=== PATIENT | female | born 1960 | race Caucasian/White ===

== ENCOUNTER 2023-01-15 10:46 | Day surgery (SDC) | payer MEDICARE ==
[2023-01-15] MEDS ORDERED: BUPIVACAINE 0.5% VIAL IJ ONE (10:47)
[2023-01-15] MEDS ORDERED: XYLOCAINE-MPF 1% 5ML SDV IJ ONE (10:47)
[2023-01-15] MEDS ORDERED: Depo-Medrol 40 MG/ML IM ONE (10:47)
--- NOTE | 2023-01-15 12:35 | XRAY ---
Indication: Right shoulder and subacromial bursa injection. Intraoperative fluoroscopy provided for 23 seconds. 2 digital spot image submitted for interpretation demonstrates needle tip projecting over right glenohumeral joint superiorly. Second needle tip subacromial. Small amount of contrast injected for needle placement. Correlate with intraoperative findings/report.
--- NOTE | 2023-01-16 10:59 | XRAY ---
23 seconds of fluoroscopy was used in surgery for a right intra-articular shoulder and right subacromial bursa injection.
== END 2023-01-15 12:32 | disposition home or self-care (01) ==
LOC: SDC-PAIN 10:46
PROVIDERS: ATTEND Psychiatry & Neurology Pain Medicine
DX: M19.011 Primary osteoarthritis, right shoulder (principal); M75.51 Bursitis of right shoulder; M79.18 Myalgia, other site
CPT/HCPCS: 20610; 73030; 77002; J1030; Q9966

== ENCOUNTER 2023-03-25 13:27 | Day surgery (SDC) | payer MEDICARE ==
[2023-03-25] MEDS ORDERED: Sodium Chloride 0.9(Preservative Free) 10 ML IJ ONE (13:28)
[2023-03-25] MEDS ORDERED: Decadron 4 MG INJ IV ONE (13:28)
[2023-03-25] MEDS ORDERED: Lactated Ringers 1,000 ML IV ONE (15:35)
--- NOTE | 2023-03-25 17:01 | XRAY ---
Indication: Cervical PAWEL. Intraoperative fluoroscopy provided for 18 seconds. 2 digital spot images submitted for interpretation demonstrates posterior needle tip projecting at cervical thoracic junction. Small amount of contrast injected for needle tip placement. Correlate with intraoperative findings/report.
--- NOTE | 2023-03-25 17:41 | XRAY ---
18 seconds of fluoroscopy was used in surgery for a cervical PAWEL.
== END 2023-03-25 14:35 | disposition home or self-care (01) ==
LOC: SDC-PAIN 13:27
PROVIDERS: ATTEND Psychiatry & Neurology Pain Medicine
DX: M54.12 Radiculopathy, cervical region (principal)
CPT/HCPCS: 62321; 72040; 77003; J1100; Q9966